=== PATIENT | female | born 1940 | race Caucasian/White ===

== ENCOUNTER 2021-09-30 11:51 | Emergency (ER) | payer MEDICARE ==
[~2021-09-30 11:51] MED LIST: NORCO 5-325 TA1 EACH PO; PHENERGAN 25 MG25 M1 PO
[2021-09-30] MEDS ORDERED: HYDROCODON-ACE1 EAC4 PO (13:52)
[2021-09-30 14:57] LABS: BUN/CREATININE RATIO 22 (0-10)
[2021-09-30 14:58] LABS: HEMOGLOBIN 12.7 gm/dl (12.3-15.3); RED BLOOD COUNT 4.39 M/UL (4.00-5.10); WHITE BLOOD COUNT 11.9 K/UL (4.5-11.0)
[2021-09-30] MEDS ORDERED: OMNICEF 300 MG300 MG PO (17:54)
== END 2021-09-30 18:55 | disposition home or self-care (01) ==
LOC: ER1 11:51
PROVIDERS: Student in an Organized Health Care Education/Training Program
DX: S30.0XXA Contusion of lower back and pelvis, initial encounter (principal); N39.0 Urinary tract infection, site not specified; E11.9 Type 2 diabetes mellitus without complications; I10 Essential (primary) hypertension; Z88.5 Allergy status to narcotic agent; W01.0XXA Fall on same level from slipping, tripping and stumbling without subsequent striking against object, initial encounter; Y92.009 Unspecified place in unspecified non-institutional (private) residence as the place of occurrence of the external cause
CPT/HCPCS: 72192; 80053; 81001; 83690; 85025; 93005; 96374; 99284; J0696; Q9967